=== PATIENT | female | born 1960 | race Caucasian/White ===

== ENCOUNTER → 2018-11-24 | Outpatient (CLI) | payer OTHER ==
--- NOTE | 2018-11-24 13:02 | RAD ---
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 For purposes of this report it with a be considered to be a partially lumbarized S1 segment. No fracture or dislocation is identified. There are mild scattered marginal spurs. There are mild degenerative changes involving the facet joints bilaterally in the lower lumbar spine. IMPRESSION: 1. 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 2. Mild scattered degenerative changes. 3. No acute bony abnormality is detected. Electronically signed by: Deandre Antoine MD (11/24/2018 12:59 PM) [facility]
== END | disposition home or self-care (01) ==
LOC: RAD 09:53
PROVIDERS: ATTEND Anesthesiology Pain Medicine
DX: M47.817 Spondylosis without myelopathy or radiculopathy, lumbosacral region (principal); M53.87 Other specified dorsopathies, lumbosacral region
CPT/HCPCS: 72100